=== PATIENT | male | born 1955 ===

== ENCOUNTER 2024-07-21 07:45 | Inpatient (IN) | payer OTHER ==
[~2024-07-21] VITALS: Ht 167.6 cm; Wt 97.5 kg
[2024-07-21 13:23] LABS: HEMATOCRIT 32.9 % (39.0-48.0); HEMOGLOBIN 11.3 g/dL (13-16.00); MEAN CELL VOLUME 87.4 fL (80.0-100.00); MEAN CORPUSCULAR HEMOGLOBIN 30.1 pg (27.00-32.0); MEAN CORPUSCULAR HGB CONC 34.4 g/dl (32.0-36.0); PLATELET COUNT 250 K/uL (150-450); RED BLOOD COUNT 3.76 M/uL (4.00-6.00); RED CELL DISTRIBUTION WIDTH 14.1 % (11.5-14.5)
[2024-07-21 13:31] LABS: PH,URINE 5.5 (5.0-8.0); URINE APPEARANCE Clear; URINE BILIRRUBIN Negative (NEGATIVE); URINE BLOOD Negative; URINE COLOR Yellow; URINE KETONE Negative (NEGATIVE); URINE LEUKOCYTE Negative; URINE NITRATE Negative; URINE PROTEIN Negative (NEGATIVE); URINE UROBILINOGEN 0.2 E.U./dl
[2024-07-21 13:34] LABS: URINE BACTERIA 31.4 uL (0.0-1933); URINE EPITHELIAL CELLS 4.7 uL (0.0-38.8)
[2024-07-21 13:39] LABS: URINE CAST 0.15 uL (0.0-1.40); URINE GLUCOSE 500 MG/DL (NEGATIVE); URINE RBC 0.1 uL (0.0-20.8); URINE WBC 1.5 uL (0.0-23.2)
[2024-07-21 13:41] LABS: INR 1.05; PARTIAL THROMBOPLASTIN TIME 24.1 SECONDS (22.0-34.0); PROTHROMBIN TIME 11.4 SECONDS (9.0-11.5)
[2024-07-21 14:45] LABS: CALCIUM 9.5 mg/dL (8.5-10.1); CREATININE SERUM 1.86 mg/dL (0.70-1.30); GFR 35.99; POTASSIUM 4.95 mEq/L (3.5-5.1)
[2024-07-21] MEDS ORDERED: AMLODIPINE (14:48)
[2024-07-21] MEDS ORDERED: HYDRALAZINE (14:48)
[2024-07-21] MEDS ORDERED: LISINOPRIL (14:49)
[2024-07-21] MEDS ORDERED: LEVOTHYROXINE (14:52)
[2024-07-21] MEDS ORDERED: SPIRONOLACTONE1 GM (14:52)
[2024-07-21] MEDS ORDERED: FARXIGA (14:53)
[2024-07-21] MEDS ORDERED: SIMVASTATIN (14:54)
[2024-07-21 15:21] LABS: RH POSITIVE
[2024-07-25] MEDS ORDERED: CEFAZOLIN SODIUM 1,000 MG VIAL IV ONE (09:00)
[2024-07-25] MEDS ORDERED: ENOXAPARIN SODIUM 40 MG/0.4 ML SYRINGE SUBCUTANEO ONE (09:00)
[2024-07-25] MEDS ORDERED: MANNITOL 0.2 GM/ML (500ML) IV.SOLN IV ONE (09:30)
[2024-07-25] MEDS ORDERED: SUGAMMADEX SODIUM 200 MG/2 ML VIAL IV ONE (12:15)
[2024-07-25] MEDS ORDERED: DEXTROSE 5 %-0.45 % SOD CHLORD 1,000 ML IV SCH (12:44)
[2024-07-25] MEDS ORDERED: MORPHINE SULFATE 2 MG/ML CARTRIDGE IV PRN (12:45)
[2024-07-25] MEDS ORDERED: ONDANSETRON HCL 2 MG/ML VIAL IV PRN (12:45)
[2024-07-25] MEDS ORDERED: MORPHINE SULFATE 4 MG/ML VIAL IV ONE ×2 (12:55→13:25)
[2024-07-25] MEDS ORDERED: ONDANSETRON HCL 2 MG/ML VIAL IV ONE (13:00)
[2024-07-25] MEDS ORDERED: SIMETHICONE 125 MG CAPSULE PO SCH (13:00)
[2024-07-25] MEDS ORDERED: SODIUM CHLORIDE 0.45 % 1,000 ML IV SCH (13:15)
[2024-07-25 14:00] VITALS: BP 139/73; O2SAT 97
[2024-07-25 16:25] VITALS: BP 124/85; O2SAT 96
[2024-07-25] MEDS ORDERED: GABAPENTIN 300 MG CAPSULE PO SCH (17:00)
[2024-07-25] MEDS ORDERED: FAMOtidine 20 MG TABLET PO SCH (17:00)
[2024-07-25] MEDS ORDERED: DOCUSATE SODIUM 100MG CAP PO SCH (17:00)
[2024-07-25] MEDS ORDERED: CEFAZOLIN SODIUM 1,000 MG VIAL IV SCH (17:00)
[2024-07-25] MEDS ORDERED: OxyCODONE HCL/APAP UD (PERCOCET) PO PRN (20:45)
[2024-07-26] VITALS: BP 147/81; O2SAT 98
[2024-07-26 07:48] LABS: HEMATOCRIT 33.8 % (39.0-48.0); HEMOGLOBIN 11.9 g/dL (13-16.00); MEAN CORPUSCULAR HEMOGLOBIN 30.5 pg (27.00-32.0); MEAN CORPUSCULAR HGB CONC 35.1 g/dl (32.0-36.0); PLATELET COUNT 260 K/uL (150-450); RED BLOOD COUNT 3.89 M/uL (4.00-6.00); RED CELL DISTRIBUTION WIDTH 13.9 % (11.5-14.5)
[2024-07-26 07:55] LABS: CALCIUM 9.3 mg/dL (8.5-10.1); CREATININE SERUM 2.25 mg/dL (0.70-1.30); GFR 28.89; POTASSIUM 5.24 mEq/L (3.5-5.1)
[2024-07-26 08:00] VITALS: BP 99/64; O2SAT 96
[2024-07-26] MEDS ORDERED: TAMSULOSIN HCL 0.4 MG CAP PO SCH (09:00)
[2024-07-26] MEDS ORDERED: SPIRONOLACTONE 25 MG TABLET PO SCH (09:00)
[2024-07-26] MEDS ORDERED: AMLODIPINE BESYLATE 5 MG TABLET PO SCH (09:00)
[2024-07-26] MEDS ORDERED: INSULIN LISPRO 1,000 UNIT/10 ML UNITS SUBCUTANEO PRN (09:30)
[2024-07-26] MEDS ORDERED: hydrALAZINE HCL 25 MG TABLET PO PRN (09:30)
[2024-07-26] MEDS ORDERED: DEXTROSE 50 % IN WATER 0.5 G/ML DISP.SYRIN IV PRN (09:30)
[2024-07-26 16:57] VITALS: BP 123/67; O2SAT 94
[2024-07-26] MEDS ORDERED: FUROsemide 20 MG/2 ML VIAL IV STA (18:01)
[2024-07-27] VITALS: BP 110/71; O2SAT 95
[2024-07-27 07:23] LABS: CALCIUM 8.8 mg/dL (8.5-10.1); CREATININE SERUM 2.3 mg/dL (0.70-1.30); GFR 28.17; POTASSIUM 4.54 mEq/L (3.5-5.1)
[2024-07-27 07:49] LABS: HEMATOCRIT 31.4 % (39.0-48.0); MEAN CORPUSCULAR HEMOGLOBIN 30.5 pg (27.00-32.0); PLATELET COUNT 239 K/uL (150-450); RED BLOOD COUNT 3.61 M/uL (4.00-6.00)
[2024-07-27 08:00] VITALS: BP 127/73; O2SAT 95
[2024-07-27 16:57] VITALS: BP 120/64; O2SAT 95
== END 2024-07-28 07:24 | disposition home or self-care (01) | DRG 658 ==
LOC: O/R 07-25 05:35 → SURH 07-25 05:35
PROVIDERS: ADMIT Urology; ATTEND Urology
PROC: 0TB14ZZ Excision of Left Kidney, Percutaneous Endoscopic Approach (ICD-10-PCS; principal; 2024-07-25 07:00)
DX: C64.2 Malignant neoplasm of left kidney, except renal pelvis (principal)